=== PATIENT | male | born 1985 | race Caucasian/White ===

== ENCOUNTER 2018-06-07 20:40 | Emergency (ER) | payer BC, OTHER ==
[2018-06-07 20:56] VITALS: BP 145/95
--- NOTE | 2018-06-07 21:17 | UC ---
Respiratory Complaint HPI - HPI Summary HPI Summary: developed a cough two weeks ago, thought he was getting better but now has fever , SOb on exertion, has had exposure to person with active TB, but is followed by MD and has had neg PPD recently. denies any blood tinged sputum. does have chills, muscle and body aches. does have a smoking hx. - History of Current Complaint Chief Complaint: UCRespiratory Stated Complaint: COUGH,FEVER,CHILLS Time Seen by Provider: 06/07/18 20:45 Hx Obtained From: Patient Onset/Duration: Sudden Onset, Lasting Weeks Timing: Constant Severity Initially: Moderate Severity Currently: Severe Pain Intensity: 9 Character: Cough: Productive Aggravating Factors: Exertion, Deep Breaths Associated Signs And Symptoms: Positive: Dyspnea, Fever, Chills, URI, Nasal Congestion - Allergies/Home Medications Allergies/Adverse Reactions: Allergies Allergy/AdvReac Type Severity Reaction Status Date / Time No Known Allergies Allergy Verified 06/07/18 20:56 Home Medications: Home Medications Ibuprofen TAB* [Motrin TAB* 800 MG] 800 mg PO ONCE 06/07/18 [History Confirmed 06/07/18] PMH/Surg Hx/FS Hx/Imm Hx Previously Healthy: Yes - Surgical History Surgical History: None - Family History Known Family History: Negative: Hypertension - Social History Alcohol Use: Occasionally Substance Use Type: None Smoking Status (MU): Light Every Day Tobacco Smoker Review of Systems Constitutional: Fever, Chills, Fatigue Skin: Negative Eyes: Negative ENT: Negative Respiratory: Shortness Of Breath, Cough Cardiovascular: Negative Gastrointestinal: Negative Genitourinary: Negative Motor: Negative Neurovascular: Negative Musculoskeletal: Myalgia Neurological: Headache Psychological: Negative Is Patient Immunocompromised?: No All Other Systems Reviewed And Are Negative: Yes Physical Exam Triage Information Reviewed: Yes Appearance: Well-Nourished, Ill-Appearing, Pain Distress Vital Signs: Initial Vital Signs Temp 100.8 F 06/07/18 20:50 Pulse 123 06/07/18 20:50 Resp 16 06/07/18 20:50 BP 145/95 06/07/18 20:50 Pulse Ox 99 06/07/18 20:50 Vital Signs Reviewed: Yes Eye Exam: Normal ENT: Positive: Pharyngeal erythema, Nasal congestion, Sinus tenderness Dental Exam: Normal Neck: Positive: Supple, Nontender Respiratory: Positive: Chest non-tender, No accessory muscle use, Respiratory distress - mild, Decreased breath sounds Cardiovascular Exam: Normal Cardiovascular: Positive: RRR, No Murmur, Tachycardia Abdominal Exam: Normal Abdomen Description: Positive: Nontender, No Organomegaly, Soft Bowel Sounds: Positive: Present Musculoskeletal Exam: Normal Musculoskeletal: Positive: Strength Intact, ROM Intact, No Edema Neurological Exam: Normal Neurological: Positive: Alert, Muscle Tone Normal Psychological Exam: Normal Skin Exam: Normal UC Diagnostic Evaluation - Laboratory O2 Sat by Pulse Oximetry: 99 Respiratory Course/Dx - Course Course Of Treatment: hx obtained, exam performed, meds reviewed, chest xray obtained, FLu swab obtained and was negative, CHest xray wet read positive for pneumonia, will treat and wait for official reading tomorrow. neb treatment given - Differential Dx/Diagnosis Differential Diagnosis/HQI/PQRI: Asthma, Bronchitis, Influenza, Lower Resp Infection, Sinusitis, Tuberculosis Provider Diagnoses: LLL pneumonia. coug. fever Discharge - Sign-Out/Discharge Documenting (check all that apply): Patient Departure All imaging exams completed and their final reports reviewed: Yes - Discharge Plan Condition: Stable Disposition: HOME Patient Education Materials: Bacterial Pneumonia (ED) Referrals: No Primary Care Phys,NOPCP [Primary Care Provider] - Additional Instructions: 1. take the medication as prescribed. 2. Increase fluid intake and get plenty of rest 3. The official radiologist read will be available tomorrow morning. I am treating based on my unofficial read and your presenting symtpoms. 4. Follow up if not improving in the next 48 hours. - Billing Disposition and Condition Condition: STABLE Disposition: Home
[2018-06-07] MEDS ORDERED: Albuterol/Ipratropium NEB.SOL* Albuterol 2.5 MG/Ipratropium 0.5 MG 3 ML INH ONE (21:27)
[2018-06-07] MEDS ORDERED: DOXYcycline CAP(*) 100 MG PO ONE (21:30)
[2018-06-07] MEDS ORDERED: Ibuprofen TAB* 600 MG PO ONE (21:46)
--- NOTE | 2018-06-08 08:51 | RAD ---
INDICATION: Cough, shortness of breath, fever, exposure to TB. COMPARISON: No relevant prior exams available on the [facility] [place]. TECHNIQUE: Dual energy PA and routine lateral views of the chest were obtained. REPORT: Bilateral diffuse subtle alveolar and interstitial opacities suspicious for bronchopneumonia given the clinical context. Negative for pneumothorax. The heart, pulmonary vasculature, and mediastinal contours are unremarkable. Unremarkable osseous structures and soft tissue contours. IMPRESSION: #. Bilateral diffuse subtle alveolar and interstitial opacities suspicious for bronchopneumonia given the clinical context. R0
== END 2018-06-07 21:55 | disposition home or self-care (01) ==
LOC: UCCORT 20:40
DX: J18.9 Pneumonia, unspecified organism (principal); R05 Cough; R50.9 Fever, unspecified
CPT/HCPCS: 71046; 99203; A9270-GY; G0463